=== PATIENT | male | born 1960 | race Caucasian/White ===

== ENCOUNTER → 2018-06-30 09:35 | Outpatient (CLI) | payer OTHER ==
[~2018-06-30 09:35] MED LIST: ELIQUIS5 MG PO; TOPROL XL50 MG PO
== END | disposition home or self-care (01) ==
LOC: D.US 09:35
PROVIDERS: ATTEND Orthopaedic Surgery
DX: S82.92XA Unspecified fracture of left lower leg, initial encounter for closed fracture (principal); X58.XXXA Exposure to other specified factors, initial encounter

== ENCOUNTER 2018-06-30 10:59 | Observation (INO) | payer OTHER ==
[~2018-06-30] VITALS: Ht 182.9 cm; Wt 97.7 kg
[2018-06-30] MEDS ORDERED: TOPROL XL50 MG PO (11:43)
[2018-06-30 12:05] LABS: BASOPHILS 0.3 % (0-2); EOSINOPHILS 2.8 % (0-7); HEMATOCRIT 47.5 % (42.0-54.0); HEMOGLOBIN 15.5 g/dL (13.5-17.5); IMMATURE GRANULOCYTES 0.7 % (0-5); LYMPHOCYTES 20.5 % (15-50); MCH 30.8 pg (26.0-34.0); MCHC 32.6 g/dL (31.0-37.0); MCV 94.4 fL (80.0-100.0); MEAN PLATELET VOLUME 9.9 fL (7.4-10.4); MONOCYTES 7.3 % (2-11); NEUTROPHILS 68.4 % (40-80); PLATELET COUNT 217 10x3/uL (130-400); RBC 5.03 10x6/uL (4.20-6.10); RDW 13.4 % (11.5-14.5); WBC 7.4 10x3/uL (4.8-10.8)
[2018-06-30 12:19] LABS: ALBUMIN 3.7 g/dL (3.4-5.0); ANION GAP 12.5 mmol/L (8-16); BILIRUBIN - TOTAL 0.86 mg/dL (0.2-1.3); CALCIUM 9.3 mg/dL (8.5-10.1); CARBON DIOXIDE 30.3 mmol/L (21.0-32.0); CREATININE - SERUM 1.2 mg/dL (0.6-1.3); POTASSIUM - SERUM 4.8 mmol/L (3.5-5.1)
[2018-06-30 12:20] LABS: APTT 31.7 SECONDS (22.8-39.4); INR 1.08 (0.85-1.17); PROTIME 13.5 SECONDS (11.6-15.0)
[2018-06-30 12:30] LABS: D-DIMER-QUANTITATIVE 1.28 ug/mLFEU (0.20-0.54)
--- NOTE | 2018-06-30 14:27 | NUR ---
RECEIVED PT FROM ER, PT STATED HE WENT FOR A FOLLOW UP WITH [facility] THIS MORNING WITH COMPLAINTS OF LT LEG PAIN, U/S SHOWED BLOOD CLOT. PT IS A&O X4, MOM AT BEDSIDE, NO NEEDS VOICED, CONTINUE WITH PLAN OF CARE
[2018-06-30 14:34] VITALS: BP 163/99; Ht 182.9 cm; Wt 97.7 kg
[2018-06-30] MEDS ORDERED: ELIQUIS5 MG PO (14:34)
== END 2018-06-30 16:03 | disposition home or self-care (01) ==
LOC: D.ER 10:59 → D.EDHOLD 12:52 → OBSVTIME 12:53 → D.MS 13:09
PROVIDERS: Family Medicine; ADMIT Family Medicine; ATTEND Family Medicine
DX: I82.402 Acute embolism and thrombosis of unspecified deep veins of left lower extremity (principal); I10 Essential (primary) hypertension